=== PATIENT | male | born 1935 | race Caucasian/White ===

== ENCOUNTER 2019-07-09 06:52 | Emergency (ER) | payer MEDICARE ==
[~2019-07-09] VITALS: Ht 177.8 cm; Wt 81.6 kg
[2019-07-09 07:13] LABS: BASO # 0.1 10*3/uL (0.0-0.1); BASO % 0.8 % (0.0-1.0); EOS # 0.3 10*3/uL (0.0-0.4); EOS % 2.4 % (1.0-4.0); LYMPH # 2.2 10*3/uL (1.3-4.4); LYMPH % 18.8 % (27.0-41.0); MEAN CELL VOLUME 100.7 fl (80.0-94.0); MEAN CORPUSCULAR HGB 32.9 pg (27.0-31.0); MEAN CORPUSCULAR HGB CONC 32.7 g/dl (33.0-37.0); MEAN PLATELET VOLUME 11.5 fl (9.6-12.3); MONO # 0.8 10*3/uL (0.1-1.0); NEUT # 8.2 10*3/uL (2.3-7.9); NEUT % 70.5 % (47.0-73.0); PLATELET COUNT AUTOMATED 189 10*3/uL (130-400); RED BLOOD COUNT 4.47 10*6/uL (4.50-5.90); RED CELL DISTRI WIDTH 15.9 % (0-14.5); WHITE BLOOD COUNT 11.7 10*3/uL (4.8-10.8)
[2019-07-09 07:37] LABS: ALBUMIN 4.1 gm/dl (3.1-4.5); CREATININE 1.51 mg/dL (0.70-1.30); POTASSIUM 3.4 mmol/L (3.5-5.1); TOTAL PROTEIN 7.7 gm/dL (6.4-8.2)
[2019-07-09 07:40] LABS: TROPONIN I 2.01 ng/ml (<0.045)
== END 2019-07-09 07:55 | disposition short-term general hospital (02) ==
LOC: ED 06:52
PROVIDERS: Emergency Medicine
DX: I21.9 Acute myocardial infarction, unspecified (principal)

== ENCOUNTER → 2021-02-02 | Outpatient (CLI) | payer OTHER | END | disposition home or self-care (01) | LOC: COVID19 15:25 | PROVIDERS: ATTEND Internal Medicine | DX: R05.9 Cough, unspecified (principal); Z11.52 Encounter for screening for COVID-19; Z20.822 Contact with and (suspected) exposure to COVID-19 ==